=== PATIENT | female | born 1960 | race Caucasian/White ===

== ENCOUNTER → 2019-01-06 08:53 | Outpatient (CLI) | payer BC, SELFPAY ==
--- NOTE | 2019-01-06 08:56 | XR_ITS ---
XR DEXA axial skeleton HISTORY: ITS.REASON: OSTEOPENIA ORDERING PHYSICIAN: Ronnie Nuñez MD PATIENT AGE: 58 years COMPARISON: None FINDINGS: The BMD measured at the Total Right femoral neck is -.886 g/cm squared with a T score of -1.0. This is considered Normal according to the World Health Organization criteria. Fracture risk is Low. Treatment is advised. L1 L4 density has a T score of 4.8 indicating normal bone density IMPRESSION: Normal bone density with low fracture risk. Recommend follow-up exam December 2020
== END ==
PROVIDERS: PCP Family Medicine; Visit Provider Family Medicine
DX: Z13.820 Encounter for screening for osteoporosis (principal)
CPT/HCPCS: 77080

== ENCOUNTER → 2019-05-30 10:35 | Outpatient (CLI) | payer BC, SELFPAY ==
--- NOTE | 2019-05-30 10:41 | NVE_ITS ---
Venous Exam Indications: 729.5 Pain in limb. 782.3 Edema. IMPRESSIONS 1. There is no evidence of significant Reflux. 2. No evidence of deep or superficial vein thrombosis involving the left lower extremity Left lower extremity venous duplex evaluation. Doppler flow study including spectral analysis, color and gay scale imaging. Location: Vascular laboratory. Patient status: Outpatient. Tables: Venous flow and imaging: + +-------+ + + Location Overall Flow properties Comments + +-------+ + + Left common femoral Patent Normal phasicity; spontaneous; normal augmentation; compressible + +-------+ + + Left saphenofemoral Patent Compressible junction + +-------+ + + Left profunda femoral Patent Compressible + +-------+ + + Left femoral Patent Normal phasicity; Mid portion of this spontaneous; normal vessel not augmentation; visualized. compressible + +-------+ + + Left greater saphenous Patent Normal phasicity; spontaneous; normal augmentation; compressible + +-------+ + + Left popliteal Patent Normal phasicity; spontaneous; normal augmentation; compressible + +-------+ + + Left posterior tibial Patent Compressible Mid portion of this vessel not visualized. + +-------+ + + Left peroneal Patent Compressible Mid portion of this vessel not visualized. + +-------+ + + Left gastrocnemius Patent Compressible + +-------+ + + Left soleal Patent Compressible + +-------+ + + (Report amended ) Electronically signed by: Vini Patel [id number]
== END ==
PROVIDERS: PCP Family Medicine; Visit Provider Nurse Practitioner Family
DX: M79.605 Pain in left leg (principal)
CPT/HCPCS: 93971

== ENCOUNTER → 2019-07-12 11:12 | Outpatient (CLI) | payer BC, SELFPAY ==
--- NOTE | 2019-07-12 11:18 | XR_ITS ---
PROCEDURE: XR FOOT WT BEARING RT 3V CLINICAL INDICATION: pain Pain in the heel COMPARISON: No exams were available for comparison FINDINGS: No fracture or dislocation. No lytic or blastic change. There is normal mineralization. Mild osteoarthritic changes are present at the metatarsal tarsal junction and the 1st metatarsophalangeal joint. There is mild pes planus. Calcification is present along the plantar fascia Other findings:Enthesophytes of the Achilles tendon with small calcaneal spur. Soft tissue calcifications noted along the lower anterior leg IMPRESSION: Osteoarthritic change with pes planus. Calcification noted within the plantar fascia which may be seen with plantar fasciitis. Dictated by: Rupert Camacho MD 07/12/2019 12:42 Signed by: <Electronically signed by Rupert Camacho MD in [place]> 07/12/2019 12:42
--- NOTE | 2019-07-12 11:18 | XR_ITS ---
PROCEDURE: XR ANKLE WT BEARING RT MIN 3V CLINICAL INDICATION: pain COMPARISON: No exams were available for comparison FINDINGS: Mild hypertrophic changes are present at the medial and lateral malleolar region. There is an enthesophytes at the Achilles insertion. No fracture or dislocation IMPRESSION: . mild degenerative change. Nonspecific enthesophytes at the Achilles insertion Dictated by: Rupert Camacho MD 07/12/2019 13:20 Signed by: <Electronically signed by Rupert Camacho MD in [place]> 07/12/2019 13:20
== END ==
PROVIDERS: PCP Family Medicine; Visit Provider Podiatrist
DX: M79.671 Pain in right foot (principal)
CPT/HCPCS: 73610; 73630

== ENCOUNTER → 2019-07-18 15:55 | Outpatient (CLI) | payer BC, SELFPAY ==
[2019-07-18 17:12] LABS: Blood Urea Nitrogen 18 mg/dL (7-18); Creatinine,Serum 0.95 mg/dL (0.55-1.02); Estimated Glomerular Filt Rate 60 ml/min (>60); GFR (African American) 73 ML/MIN (>60)
== END ==
PROVIDERS: Visit Provider Podiatrist
DX: Z01.818 Encounter for other preprocedural examination (principal)
CPT/HCPCS: 36415; 82565; 84520

== ENCOUNTER → 2019-07-22 09:31 | Outpatient (CLI) | payer BC, SELFPAY ==
--- NOTE | 2019-07-22 09:33 | MR_ITS ---
PROCEDURE: MR ANKLE RT WO/W CON CLINICAL INDICATION: evaluate for edema, tendon tear, rupture Posterior ankle pain, tendon pain, rupture of the Achilles tendon, strain of right Achilles tendon, right Achilles bursitis, right foot pain COMPARISON: XR ANKLE WT BEARING RT MIN 3V from 07/12/2019 TECHNIQUE: Routine multiplanar multi echo sequences are performed without and with gadolinium enhancement. FINDINGS: There is mild generalized diffuse soft tissue edema greater along the medial aspect of the ankle. No bone marrow edema evident. The tibiofibular and talofibular ligaments appear intact as does the deltoid ligament. Spring ligament is identified and has an unremarkable appearance. The prone peroneal tendons, flexor digitorum longus, and flexor hallucis longus tendons and posterior tibialis tendons have an unremarkable appearance. There is thickening of the distal most aspect of the Achilles tendon with slight increased T2 signal with mild edema in the soft tissues adjacent to the tendon.. Edema is present in Kager's fat pad. Increased T2 signal involves the most distal aspect of the Achilles tendon fibers along the posterior margin. Small area of increased T2 signal involves the lateral aspect of the talar dome. IMPRESSION: 1. Thickening of the distal aspect of the Achilles tendon with edema of the tendon and mild edema of the soft tissues adjacent to the tendon consistent with Achilles tendinosis with possible partial tear distally at the insertion on the the calcaneus and mild edema of Kager's fat pad. A complete tear of the Achilles tendon is not present 2. Generalized subcutaneous edema of the ankle Dictated by: Rupert Camacho MD 07/24/2019 07:18 Electronically signed by Rupert Camacho MD in [place] 07/24/2019 07:18
== END ==
PROVIDERS: PCP Family Medicine; Visit Provider Podiatrist
DX: S86.011A Strain of right Achilles tendon, initial encounter (principal)
CPT/HCPCS: 73723

== ENCOUNTER → 2019-10-27 09:02 | Outpatient (CLI) | payer BC, SELFPAY ==
--- NOTE | 2019-10-27 09:07 | US_ITS ---
PROCEDURE: US THYROID CLINICAL INDICATION: GOITER COMPARISON: No exams were available for comparison FINDINGS: Right lobe: 3.2 x 0.9 x 1.1 cm. There is heterogeneous echogenicity of the right lobe but no discrete mass. Left lobe: 2.7 x 1.1 x 1.1 cm. Heterogeneous echogenicity but no discrete mass. Isthmus: Unremarkable Additional findings: IMPRESSION: Heterogeneous thyroid with no discrete mass. Dictated by: Rupert Camacho MD 10/27/2019 13:48 Electronically signed by Rupert Camacho MD in [place] 10/27/2019 13:48
== END ==
PROVIDERS: PCP Family Medicine; Visit Provider Family Medicine
DX: E04.9 Nontoxic goiter, unspecified (principal)
CPT/HCPCS: 76536

== ENCOUNTER → 2020-06-20 07:23 | Outpatient (CLI) | payer BC, SELFPAY ==
--- NOTE | 2020-06-20 07:35 | MM_ITS ---
PROCEDURE: MM DIG SCREENING MAMM BI W/CAD Digital Breast Tomosynthesis Included CLINICAL INDICATION: SCREENING there is a history of breast cancer patient's paternal aunt. There has been a previous biopsy right breast for benign disease. 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 R2 CAD reviewed. FINDINGS: The breasts are composed primarily of fat with minimal scattered fibroglandular densities throughout each breast. There is a stable nodular density near the axillary tail left breast likely a low-lying node unchanged in appearance from mammograms 10/24/2007. There is a stable tiny nodular density subareolar region left breast. There is no suspicious lesion and no suspicious microcalcifications. IMPRESSION: Fatty type breast parenchyma with no suspicious lesions seen BI-RAD Category: 2 Benign Finding(s) FOLLOW-UP: 1YR 1 Year Follow-up (A letter has been sent to the patient regarding results of the study.) Dictated Dr. Aiden Lees MD 06/22/2020 08:05 Dr. Aiden Reno MD in [place] 06/22/2020 08:05
--- NOTE | 2020-06-20 07:36 | US_ITS ---
PROCEDURE: US TRANSVAGINAL CLINICAL INDICATION: VAGINAL BLEEDING COMPARISON: US PTV US PELVIS-TRANSVAGINAL ONLY from 07/25/2016 FINDINGS: UTERUS: 8cm x 6cmx 4cm with a combined endometrial thickness of 22.5mm LEFT OVARY: 2pxm2lii4.2cm with a volume of 4.4ml. RIGHT OVARY: [id number] with a volume of 1ml. There is moderate to severe thickening of the endometrium measuring up to 2.3 cm in thickness with areas of decreased echogenicity on the left. IMPRESSION: Moderate to severe thickening of the endometrium with some cystic areas. Endometrial hyperplasia, endometrial carcinoma, or endometrial polyp is considered. LOCOMOTIVE LUBRICATING SYSTEMS CLERK consult suggested Dictated b Rupert Camacho MD 06/20/2020 16:04 Rupert Camacho MD in [place] 06/20/2020 16:04
== END ==
PROVIDERS: PCP Family Medicine; Visit Provider Physician Assistant
DX: N93.9 Abnormal uterine and vaginal bleeding, unspecified (principal)
CPT/HCPCS: 76830; 77063; 77067

== ENCOUNTER → 2020-06-23 10:02 | Outpatient (CLI) | payer BC, SELFPAY ==
[2020-06-23 13:00] LABS: Potassium 5.3 mmoL/L (3.5-5.1)
== END ==
PROVIDERS: Visit Provider Physician Assistant
DX: R25.2 Cramp and spasm (principal)
CPT/HCPCS: 36415; 84132

== ENCOUNTER → 2020-08-14 10:46 | Outpatient (CLI) | payer BC, SELFPAY ==
--- NOTE | 2020-08-14 10:59 | ECG_ITS ---
APPROVED REPORT Exam: Resting ECG HR:77 bpm ECG Measurements Heart Rate 77 AXES FL 182 P 49 QRSd 98 QRS -4 QT 390 T 18 QTc 441 Conclusion Normal sinus rhythm Normal ECG Electronically signed by : Davion Mosher, 08/17/2020 13:57:09
[2020-08-14 11:05] LABS: Basophils # 0.1 K/mm3 (0-0.2); Basophils % 0.6 % (0.1-2.0); Eosinophils # 0.1 K/mm3 (0.0-0.4); Eosinophils % 1.6 % (0.1-12.0); Hemoglobin 13.7 g/dL (12.2-16.2); Lymphocytes # 2.3 K/mm3 (0.7-4.5); Lymphocytes % 29.8 % (10-50); Mean Corpuscular HGB Conc 31.2 g/dL (31.8-35.4); Mean Corpuscular Hemoglobin 29.5 pg (27.0-31.2); Mean Corpuscular Volume 94.4 fl (81-99); Mean Platelet Volume 9.5 fl (7.4-10.4); Monocytes # 0.3 K/mm3 (0.1-1.0); Neutrophils % 63.9 % (37.0-80.0); Platelet Count 246 K/mm3 (142-424); Red Blood Count 4.66 M/mm3 (4.20-5.40); Red Cell Distribution Width 12.7 % (11.5-17.5); White Blood Count 7.8 K/mm3 (4.8-10.8)
[2020-08-14 11:32] LABS: Chloride 100 mmol/L (98-107); Potassium 4.4 mmoL/L (3.5-5.1); Sodium 139 mmol/L (136-145)
[2020-08-14 11:35] LABS: Anion Gap 13.4 mEq/L (5-15); Blood Urea Nitrogen 16 mg/dl (7-17); Calcium 9.4 mg/dl (8.4-10.2); Carbon Dioxide 30 mmol/L (22.0-30.0); Estimated Glomerular Filt Rate 64 ml/min (>60); GFR (African American) 77 ML/MIN (>60); Glucose 139 mg/dl (74-100)
[2020-08-14 11:49] LABS: Coronavirus 19 IgG Antibody Negative (Negative); Coronavirus 19 IgM Antibody Negative (Negative)
== END ==
PROVIDERS: Visit Provider Nurse Practitioner Obstetrics & Gynecology
DX: Z01.89 Encounter for other specified special examinations (principal); N85.00 Endometrial hyperplasia, unspecified; N95.0 Postmenopausal bleeding
CPT/HCPCS: 36415; 80048; 85025; 86328; 93005

== ENCOUNTER 2020-08-15 05:56 | Day surgery (SDC) | payer BC, SELFPAY ==
[2020-08-14 09:11] VITALS: BMI 54.1
[2020-08-15] VITALS (15 sets, daily range): BP systolic 111–164; BP diastolic 48–97; PULSE 71–89; RESP 12–18; TEMP 36.2–36.9; O2SAT 89–100
--- NOTE | 2020-08-15 06:45 | P.PN_ITS ---
[facility] Anesthesia Checklist - Structural Data Admitted From: Home Planned Operative Procedure/s: d/c hyst Consent for Planned Operative Procedure(s) Verified: Yes - Additional verifications Anesthesia Reactions: No Hx Blood Transfusions: No Blood Transfusion Reaction: No - Airway Assessment C-Spine Mobility Assessed: Yes TMJ Mobility Assessed: Yes Dentition: Good Dentition - Neurological Assessment Level of Consciousness: Awake, Alert, Appropriate - Anesthesia Plan Anesthesia Risk discussed: Yes Anesthesia Plan: Verified ASA Class: II Anesthesia Type: General [facility] History I have reviewed the patient's past medical history: Yes Medical History: Reports:: Hyperlipidemia, Hypertension Denies:: Cancer, Diabetes Mellitus Type 1, Diabetes Mellitus Type 2, Internal Pacemaker, MRSA, Seizures *Have you ever received a pneumonia vaccine?: No *Have you received a flu vaccine this season?: No Other Medical History: Reports: Arthritis. Denies: Blood Transfusion Reaction Anesthesia experience/problems:: none Laterality Cases: Left: Total Knee Replacement Other Surgeries: Yes: Cholecystectomy, Colonoscopy, Other. No: Pacemaker Amputation: No Fractures: No - *Social History Last grade of school completed: High school graduate Smoking Status: Never smoker Alcohol Intake: never Substance Use Type: denies use *Occupational Status:: employed Housing: house Household Members: spouse *Travel in the last 8 weeks: None Family Hx:: Cancer, Hyperlipidemia, Hypertension, Stroke
--- NOTE | 2020-08-15 08:04 | HMH.OPNOTE ---
Date of procedure: 08/15/20 Pre-op Diagnosis:: Postmenopausal bleeding, complex hyperplasia with atypia Post-op Diagnosis:: Postmenopausal bleeding, complex hyperplasia with atypia Procedure performed:: Hysteroscopy with MyoSure Surgeon:: Ollie Levine MD POLICE RESERVES COMMANDER:: Ferdinand Naqvi Anesthesia: LMA Estimated blood loss (mL): 50 Clinical Note:: She is a 60-year-old lady who complains of postmenopausal bleeding. An endometrial biopsy done in my office showed that she had at least complex hyperplasia with atypia. We wanted to rule out endometrial hyperplasia so we scheduled her for a hysteroscopy with MyoSure. Operative findings:: She had a very lush endometrium. It had a slightly polypoid appearance. Operative note:: She was taken the operating room where LMA anesthesia was found to be adequate. She was prepped and draped normal sterile fashion in the lithotomy position. Weighted speculum was placed in vagina and the anterior lip of the cervix was grasped with a tenaculum. The cervix was dilated to approximately 6 mm. We then inserted a 6 mm MyoSure hysteroscope. The findings were as previously dictated. Then using the MyoSure resection device we resected the entire endometrial cavity. There was copious tissue retrieved. This was sent to pathology. We then injected a total of 30 cc of 0.25% ropivacaine at the 3:00, 5:00, 7:00, 9:00 positions of the cervix. She tolerated procedure well and was taken to recovery room in excellent condition. All sponge and instrument counts were correct. The fluid ins and outs showed a deficit of 50 cc. Condition: stable Disposition: PACU Specimens:: Endometrial sampling Complications:: None
--- NOTE | 2020-08-15 08:10 | HMH.ANESI ---
[facility] Anesthesia Record Part I Intake, IV Amount: 1,000 Estimated blood loss (mL): 20 Urine output (mL): 250 Blood Pressure: 156/65 SaO2: 95 Pulse Rate: 81 Respiratory Rate: 12 Temperature: 97.6 F Patient is:: Awake, Stable Stable to PACU at:: 08:10
--- NOTE | 2020-08-15 09:00 | SUR.PHASEII ---
PT INSTRUCTED ON USE OF IS AND USING WELL. PLACED ON 2L/NC AND SAT WENT UP TO 98%.
--- NOTE | 2020-08-15 09:16 | SUR.PHASEII ---
MEDICATED PT WITH PERCOCET 1 TAB PER MD ORDER FOR C/O OF BURNING/CRAMPING RATED AT 4.
--- NOTE | 2020-08-15 10:12 | P.PN_ITS ---
[facility] Anesthesia Record Part II Discharge Time: 08:55 Destination: Surgical Day Care (OP Surgery) PACU nurse assessment reviewed?: Yes Patient Condition:: Good Anesthesia Complications:: None Swallowing reflex intact?: Yes Cyanosis?: No Blood Pressure: 132/81 Pulse Rate: 71 Temperature: 97.1 F Mental Status: Alert & Oriented Pain level:: 5 Nausea and/or vomitting:: None Intake, IV Amount: 0
== END 2020-08-15 09:36 | disposition home or self-care (01) ==
LOC: OR 05:57
PROVIDERS: PCP Family Medicine; Visit Provider Nurse Practitioner Obstetrics & Gynecology
PROC: (CPT 58563; principal; 2020-08-15 07:30)
DX: N85.01 Benign endometrial hyperplasia (principal); N95.0 Postmenopausal bleeding; I10 Essential (primary) hypertension; E78.5 Hyperlipidemia, unspecified; M19.90 Unspecified osteoarthritis, unspecified site; Z90.49 Acquired absence of other specified parts of digestive tract; Z96.652 Presence of left artificial knee joint; Z80.9 Family history of malignant neoplasm, unspecified; Z82.3 Family history of stroke; Z82.49 Family history of ischemic heart disease and other diseases of the circulatory system; Z83.438 Family history of other disorder of lipoprotein metabolism and other lipidemia; Z79.899 Other long term (current) drug therapy
CPT/HCPCS: 58563; 96374; J2405

== ENCOUNTER → 2020-09-22 10:57 | Outpatient (CLI) | payer BC, SELFPAY | PROVIDERS: Visit Provider Obstetrics & Gynecology Gynecology | DX: Z03.818 Encounter for observation for suspected exposure to other biological agents ruled out (principal) | CPT/HCPCS: U0003 ==

== ENCOUNTER → 2020-11-06 12:26 | Outpatient (CLI) | payer BC, SELFPAY ==
--- NOTE | 2020-11-06 12:33 | XR_ITS ---
PROCEDURE: XR HIP RT 2-3V W/PELVIS Referring Doctor: Alexis Fish Patient Age:60Y CLINICAL INDICATION: RIGHT HIP PAIN COMPARISON: CR PELAP PELVIS AP ONLY from 04/19/2014 CR HIP2R HIP-2 VIEWS-RT from 06/20/[address] ABD PELVIS W/ CONTRAST from 06/26/2014 FINDINGS: Right hip AP and frog-leg view with When compared to April 2014 events a pronounced progressive severe arthritic changes at right hip There is now vfse-[id number]-oski appearance with at the right hip joint superiorly with prominent sclerosis about this narrowed joint and fairly pronounced subchondral cystic changes particularly at the superior head of the right femur. Additional lipping/marginal osteophyte along outer rim of superior right acetabulum. Most likely a sequela progressive arthritic changes however would question the possibility of a underlying avascular necrosis of femoral head which has resulted/accelerated progressive arthritic changes No fracture or dislocation is evident. Deep femoral neck and trochanteric region appear intact on the right. The left hip demonstrates progressive narrowing of the hip joint space since 2013 with some early sclerosis superiorly. Left femoral head remains intact SI joints intact iliac bones intact the pubis intact stable upon arthritic changes lower L-spine IMPRESSION: . Severe arthritic changes have developed at the right hip now with marked joint space narrowing and prominent sclerosis about the joint as well as prominent subchondral cystic changes of at superior right femoral head. . Progressive narrowing of the left hip joint space since 2014 also note No acute fractures evident . Progressive degenerative changes lower L-spine also suggested. Dictated by: Vini Patel MD 11/06/2020 13:26 Vini Patel MD in [place] 11/06/2020 13:26
== END ==
PROVIDERS: PCP Family Medicine; Visit Provider Family Medicine
DX: M25.551 Pain in right hip (principal)
CPT/HCPCS: 73502

== ENCOUNTER → 2021-10-17 15:25 | Outpatient (CLI) | payer BC, SELFPAY ==
--- NOTE | 2021-10-17 15:27 | MM_ITS ---
PROCEDURE INFORMATION: Exam: MG Bilateral Screening 3D Mammography Exam date and time: 10/17/2021 3:27 PM Age: 61 years old Clinical indication: Encounter for screening mammogram for malignant neoplasm of breast TECHNIQUE: Imaging protocol: Bilateral screening tomosynthesis and 2D mammography including computer-aided detection (CAD) when performed. COMPARISON: 1. MG MM DIG SCREENING MAMM BI W/CAD 06/20/2020 8:04 AM 2. MG DMSB DIG MAMM-SCREEN SHIRLENE 07/25/2016 3:49 PM FINDINGS: MAMMOGRAPHY: Breast composition: Finding The breasts are almost entirely fatty. Mass: None. Architectural distortion: None. Calcifications: No suspicious calcifications. Asymmetric density: None. Skin thickening: None. Axillary adenopathy: None. IMPRESSION: No mammographic evidence of malignancy. Annual screening is recommended unless otherwise clinically indicated. ASSESSMENT: BI-RADS Category 1: Negative
== END ==
PROVIDERS: PCP Family Medicine; Visit Provider Family Medicine
DX: Z12.31 Encounter for screening mammogram for malignant neoplasm of breast (principal)
CPT/HCPCS: 77063; 77067

== ENCOUNTER → 2023-01-16 13:25 | Outpatient (CLI) | payer OTHER, SELFPAY ==
--- NOTE | 2023-01-16 13:28 | XR_ITS ---
FINAL REPORT CLINICAL HISTORY: hip pain, cane user, c/o numbness/tingling down leg COMPARISON: 11/06/2020 FINDINGS: RIGHT HIP Two views of the right hip demonstrate no acute fracture or dislocation. Severe degenerative change of the right hip with multiple subchondral cysts in the superior femoral head and superior acetabulum. There also moderate to severe degenerative changes in the left hip. The visualized bony structures are well aligned. No soft tissue abnormality is seen. IMPRESSION: Degenerative changes with no acute bony abnormality. Reviewed, Interpreted and Dictated by Chandana Ochoa III, MD Transcribed by Mirian Jerez Authenticated and [facility]
== END ==
LOC: RAD 13:26
PROVIDERS: PCP Family Medicine; Visit Provider Orthopaedic Surgery
DX: M25.551 Pain in right hip (principal)
CPT/HCPCS: 73502

== ENCOUNTER → 2023-02-09 13:39 | Outpatient (CLI) | payer OTHER, SELFPAY ==
--- NOTE | 2023-02-09 13:52 | ECG_ITS ---
APPROVED REPORT Exam: Resting ECG HR:72 bpm ECG Measurements Heart Rate 72 AXES RI 190 P 50 QRSd 109 QRS -8 QT 374 T 28 QTc 398 Conclusion SINUS RHYTHM MODERATE INTRAVENTRICULAR CONDUCTION DELAY [105+ ms QRS DURATION, 80+ ms Q/S IN V1/V2, NO Q AND 60+ ms R IN I/aVL/V5/V6] ABNORMAL ECG UNCONFIRMED REPORT Electronically signed by : Davion Mosher MD 02/09/2023 19:44:48
--- NOTE | 2023-02-09 13:57 | XR_ITS ---
FINAL REPORT CLINICAL HISTORY: PREOP..high blood pressure FINDINGS: Two views of the chest were obtained. Cardiomegaly is noted. There has been prior median sternotomy. No acute pulmonary abnormality is identified. There is no pneumothorax. The bony thorax is intact. IMPRESSION: No acute cardiopulmonary process. Reviewed, Interpreted and Dictated by Calderon Cage MD Transcribed by Vu Birmingham Authenticated and [facility]
== END ==
PROVIDERS: PCP Family Medicine; Visit Provider Nurse Practitioner Family
DX: Z01.818 Encounter for other preprocedural examination (principal)
CPT/HCPCS: 71046; 93005

== ENCOUNTER → 2023-04-03 14:15 | Outpatient (CLI) | payer OTHER, SELFPAY ==
--- NOTE | 2023-04-03 | CA_ITS ---
FINAL REPORT TECHNIQUE: Color Doppler, duplex Doppler and gay scale sonography of the bilateral neck arterial vasculature was performed. Velocities were measured in the carotid arteries. Stenosis evaluation based on the validated velocity criteria. CLINICAL HISTORY: bRUIT FINDINGS: The peak systolic velocity of the right common carotid artery is 127 cm/s. The peak systolic velocity of the right internal carotid artery is 107 cm/s and end diastolic velocity 23 cm/s. The ICA/CCA ratio is 1.1. No plaque is present. The right external carotid artery is patent. The right vertebral artery is patent with antegrade flow. The peak systolic velocity of the left common carotid artery is 105 cm/s. The peak systolic velocity of the left internal carotid artery is 114 cm/s and end diastolic velocity 37 cm/s. The ICA/CCA ratio is 1.1. No plaque is present. The left external carotid artery is patent. The left vertebral artery is patent with antegrade flow. IMPRESSION: No evidence of stenosis. Bilateral patent vertebral arteries with antegrade flow. Reviewed, Interpreted and Dictated by Chandana Ochoa III, MD Transcribed by Danyell Pope Authenticated and [facility]
== END ==
PROVIDERS: PCP Family Medicine; Visit Provider Family Medicine
DX: R01.1 Cardiac murmur, unspecified (principal); I65.23 Occlusion and stenosis of bilateral carotid arteries
CPT/HCPCS: 93306; 93880

== ENCOUNTER 2023-04-15 11:00 | Outpatient (RCR) | payer OTHER, SELFPAY | END 2023-04-15 11:05 | disposition home or self-care (01) | LOC: PT 11:00 | PROVIDERS: PCP Family Medicine; Visit Provider Orthopaedic Surgery Adult Reconstructive Orthopaedic Surgery | DX: M16.11 Unilateral primary osteoarthritis, right hip (principal); Z96.641 Presence of right artificial hip joint | CPT/HCPCS: 97110; 97112; 97116; 97163; 97164; 97530 ==

== ENCOUNTER 2024-01-27 11:25 | Outpatient (CLI) | payer OTHER, SELFPAY ==
[2024-01-27 12:07] LABS: Basophils # 0.1 K/mm3 (0-0.2); Basophils % 0.6 % (0.1-2.0); Eosinophils # 0.1 K/mm3 (0.0-0.4); Eosinophils % 0.8 % (0.1-12.0); Hematocrit 43.7 % (37.0-47.0); Hemoglobin 13.7 g/dL (12.2-16.2); Lymphocytes # 2.2 K/mm3 (0.7-4.5); Lymphocytes % 22.8 % (10-50); Mean Corpuscular HGB Conc 31.3 g/dL (31.8-35.4); Mean Corpuscular Hemoglobin 29.3 pg (27.0-31.2); Mean Corpuscular Volume 93.8 fl (81-99); Mean Platelet Volume 8.5 fl (7.4-10.4); Monocytes # 0.4 K/mm3 (0.1-1.0); Monocytes % 4.6 % (1.7-9.3); Neutrophils # 6.8 K/mm3 (1.8-7.8); Neutrophils % 71.4 % (37.0-80.0); Platelet Count 326 K/mm3 (142-424); Red Blood Count 4.66 M/mm3 (4.20-5.40); Red Cell Distribution Width 14.3 % (11.5-17.5); White Blood Count 9.5 K/mm3 (4.8-10.8)
[2024-01-27 12:47] LABS: Chloride 106 mmol/L (98-107); Sodium 139 mmol/L (136-145)
[2024-01-27 12:48] LABS: Potassium 4.5 mmoL/L (3.5-5.1)
[2024-01-27 12:50] LABS: Alanine Aminotransferase 19 U/L (12-78); Alkaline Phosphatase 132 U/L (38-126); Anion Gap 12.5 mEq/L (5-15); Aspartate Amino Transferase 25 U/L (14-36); Bilirubin,Total 0.4 mg/dl (0.2-1.3); Blood Urea Nitrogen 24 mg/dl (7-17); Carbon Dioxide 25 mmol/L (22.0-30.0); Cholesterol 224 mg/dl (140-200); Estimated Glomerular Filt Rate 56 ml/min (>60); GFR (African American) 68 ML/MIN (>60); Triglycerides 150 mg/dl (30-150); VLDL Cholesterol 30 mg/dL (0-40)
[2024-01-27 12:51] LABS: Albumin Level 4.1 g/dl (3.5-5.0); Albumin/Globulin Ratio 1.2 (1.1-1.8); Calcium 9.5 mg/dl (8.4-10.2); Chol/HDL Ratio 5.6 (1-3.5); Globulin 3.3 g/dL (1.3-3.2); Glucose 118 mg/dl (74-100); HDL Cholesterol 40 mg/dl (40-60); Total Protein,Serum 7.4 g/dl (6.3-8.2)
[2024-01-27 13:20] LABS: Thyroid Stimulating Hormone < 0.02 uIU/mL (0.465-4.68)
[2024-01-27 13:23] LABS: Direct LDL Cholesterol 119.06 mg/dL (100-129)
[2024-01-27 13:32] LABS: 25-OH Vitamin D, Total 17.2 ng/mL (30-100)
[2024-01-27 14:46] LABS: Hemoglobin A1C 6.1 % (4.0-6.0)
== END 2024-01-27 23:59 ==
LOC: LAB 11:26
PROVIDERS: PCP Nurse Practitioner Family; Visit Provider Nurse Practitioner Family
DX: E03.9 Hypothyroidism, unspecified (principal); E55.9 Vitamin D deficiency, unspecified; E66.01 Morbid (severe) obesity due to excess calories; I10 Essential (primary) hypertension; M12.9 Arthropathy, unspecified; Z68.42 Body mass index [BMI] 45.0-49.9, adult; Z85.42 Personal history of malignant neoplasm of other parts of uterus
CPT/HCPCS: 36415; 80053; 80061; 82306; 83036; 84443; 85025

== ENCOUNTER 2024-03-16 08:42 | Outpatient (CLI) | payer OTHER, SELFPAY ==
--- NOTE | 2024-03-16 08:47 | MM_ITS ---
PROCEDURE INFORMATION: Exam: MG Bilateral Screening 3D Mammography Exam date and time: 03/16/2024 8:37 AM Age: 63 years old Clinical indication: Screening mammogram TECHNIQUE: Imaging protocol: Bilateral Screening tomosynthesis and 2D mammography including computer-aided detection (CAD) when performed. COMPARISON: 1. MG MM DIG SCREENING MAMM BI W/CAD 10/17/2021 3:47 PM 2. MG MM DIG SCREENING MAMM BI W/CAD 06/20/2020 8:04 AM 3. MG DMSB DIG MAMM-SCREEN SHIRLENE 07/25/2016 3:49 PM 4. MG DIGMAMMDX MAMMOGRAM DX-LOWERATOR OPERATOR N/C 05/09/2008 4:07 PM FINDINGS: MAMMOGRAPHY: Breast composition: There are scattered areas of fibroglandular density. Mass: None. Architectural distortion: No new or suspicious architectural distortion. Calcifications: No new or suspicious calcifications are present Asymmetric density: No new or suspicious asymmetric density is present Skin thickening: None. Axillary adenopathy: None. IMPRESSION: No mammographic evidence of malignancy. Recommend annual screening mammography unless otherwise clinically indicated. ASSESSMENT: BI-RADS category 1: Negative.
--- NOTE | 2024-03-16 08:48 | XR_ITS ---
FINAL REPORT TECHNIQUE: Bone densitometry calculations of the lumbar spine and left hip were obtained. CLINICAL HISTORY: POST MENOPAUSAL FINDINGS: Using L1-4, the bone mineral density of the spine is 1.551 g/cm2, corresponding to T-score of 4.6 but this is likely falsely elevated secondary to hypertrophic changes. Using the left hip, the bone mineral density of the femoral neck is 0.858 g/cm2, corresponding to a T-score of -0.7. Using the 1/3 radius, the bone mineral density of the radius is 0.524 g/cm2, corresponding to a T-score of -2.8 4. NOTE: T-score: Standard deviation compared with peak bone mass of young adult mean. *Following the recommendations of the International Society of Bone Densitometry, classification of hip BMD is based on the lower of two T-scores; total hip or femoral neck. IMPRESSION: Osteoporosis: Lowest T-score is at or below -2.5. This patient's T-score meets the World Health Organization criteria for osteoporosis. FRAX was not reported because some of the T-scores are at or above -1.0 Reviewed, Interpreted and Dictated by Chandana Ochoa III, MD Transcribed by Danyell Pope Authenticated and [facility]
== END 2024-03-16 23:59 | disposition home or self-care (01) ==
LOC: RAD 08:42
PROVIDERS: PCP Nurse Practitioner Family; Visit Provider Nurse Practitioner Family
DX: Z12.31 Encounter for screening mammogram for malignant neoplasm of breast (principal); Z78.0 Asymptomatic menopausal state
CPT/HCPCS: 77063; 77067; 77080

== ENCOUNTER 2024-07-15 06:29 | Outpatient (CLI) | payer OTHER, SELFPAY ==
--- NOTE | 2024-07-15 06:51 | CT_ITS ---
FINAL REPORT TECHNIQUE: Axial images through the abdomen and pelvis were performed without intravenous contrast. Oral contrast was administered. This study was performed with techniques to keep radiation doses as low as reasonably achievable, (ALARA). Individualized dose reduction techniques using automated exposure control or adjustment of mA and/or kV according to the patient's size were employed. CLINICAL HISTORY: ABD WALL DEFECT pt drank oral contrast FINDINGS: ABDOMEN: The lung bases are clear. The heart size is normal. Limited images of the liver are unremarkable. Patient is status post cholecystectomy. The spleen is normal. No adrenal mass is identified. The aorta is normal in caliber. There is no significant free fluid or adenopathy. There is no nephrolithiasis. There is no hydronephrosis. PELVIS: The appendix is Normal. Patient is status post hysterectomy. There is a small umbilical hernia containing fat. No other abdominal wall defect is identified. The urinary bladder is unremarkable. There is no significant free fluid or adenopathy. There are postoperative changes of right hip arthroplasty. IMPRESSION: Small umbilical hernia containing fat. No other abdominal wall defects identified. Reviewed, Interpreted and Dictated by Chandana Ochoa III, MD Transcribed by Berta Smith Authenticated and [facility]
== END 2024-07-15 23:59 | disposition home or self-care (01) ==
PROVIDERS: PCP Nurse Practitioner Family; Visit Provider Nurse Practitioner Family
DX: M95.8 Other specified acquired deformities of musculoskeletal system (principal)
CPT/HCPCS: 74176

== ENCOUNTER 2025-02-16 10:48 | Outpatient (CLI) | payer OTHER, SELFPAY ==
--- NOTE | 2025-02-16 10:53 | XR_ITS ---
FINAL REPORT CLINICAL HISTORY: PAIN FINDINGS: Right knee Three views were obtained. There is no fracture or dislocation. There is moderate to severe tricompartment degenerative change. There is a possible joint body posteriorly. No significant joint effusion is identified. IMPRESSION: Advanced degenerative changes with possible joint body. Reviewed, Interpreted and Dictated by Ronnie Rosenberg MD Transcribed by Danyell Pope Authenticated and [facility]
[2025-02-16 11:25] LABS: Basophils # 0.1 K/mm3 (0-0.2); Basophils % 0.7 % (0.1-2.0); Eosinophils # 0.1 K/mm3 (0.0-0.4); Eosinophils % 1.4 % (0.1-12.0); Hematocrit 39.4 % (37.0-47.0); Lymphocytes # 1.8 K/mm3 (0.7-4.5); Lymphocytes % 25.1 % (10-50); Mean Corpuscular Volume 90.8 fl (81-99); Mean Platelet Volume 11.8 fl (7.4-10.4); Monocytes # 0.5 K/mm3 (0.1-1.0); Monocytes % 6.7 % (1.7-9.3); Neutrophils # 4.6 K/mm3 (1.8-7.8); Neutrophils % 65.8 % (37.0-80.0); Nucleated Red Blood Cells # 0 10^3/uL; Nucleated Red Blood Cells % 0 %; Platelet Count 243 K/mm3 (142-424); Red Blood Count 4.34 M/mm3 (4.20-5.40); Red Cell Distribution Width 12.5 % (11.5-17.5); Red Cell Distribution Width-SD 42.1 fL; White Blood Count 7.1 K/mm3 (4.8-10.8)
[2025-02-16 11:47] LABS: Alanine Aminotransferase 17 U/L (12-78); Albumin Level 3.9 g/dl (3.5-5.0); Alkaline Phosphatase 96 U/L (38-126); Anion Gap 16.6 mEq/L (5-15); Aspartate Amino Transferase 22 U/L (14-36); Bilirubin,Total 0.6 mg/dl (0.2-1.3); Blood Urea Nitrogen 25 mg/dl (7-17); Carbon Dioxide 23 mmol/L (22.0-30.0); Chloride 106 mmol/L (98-107); Chol/HDL Ratio 4.2 (1-3.5); Cholesterol 208 mg/dl (140-200); Estimated Glomerular Filt Rate 56 ml/min (>60); GFR (African American) 68 ML/MIN (>60); Globulin 3.8 g/dL (1.3-3.2); Glucose 119 mg/dl (74-100); HDL Cholesterol 49 mg/dl (40-60); Potassium 4.6 mmoL/L (3.5-5.1); Sodium 141 mmol/L (136-145); Total Protein,Serum 7.7 g/dl (6.3-8.2); Triglycerides 134 mg/dl (30-150); VLDL Cholesterol 27 mg/dL (0-40)
[2025-02-16 11:58] LABS: Direct LDL Cholesterol 114.32 mg/dL (100-129)
[2025-02-16 12:01] LABS: 25-OH Vitamin D, Total 20.1 ng/mL (30-100)
[2025-02-16 12:17] LABS: Thyroid Stimulating Hormone < 0.02 uIU/mL (0.465-4.68)
[2025-02-16 12:36] LABS: Vitamin B12 416 pg/mL (239-931)
[2025-02-16 13:51] LABS: Hemoglobin A1C 5.7 % (4.0-6.0)
== END 2025-02-16 23:59 | disposition home or self-care (01) ==
LOC: LAB 10:49
PROVIDERS: PCP Nurse Practitioner Family; Visit Provider Nurse Practitioner Family
DX: M25.561 Pain in right knee (principal); R73.03 Prediabetes; I10 Essential (primary) hypertension; M12.9 Arthropathy, unspecified; E03.9 Hypothyroidism, unspecified; E55.9 Vitamin D deficiency, unspecified; R20.2 Paresthesia of skin
CPT/HCPCS: 36415; 73562; 80053; 80061; 82306; 82607; 83036; 84443; 85025

== ENCOUNTER → 2025-03-17 10:05 | Outpatient (CLI) | payer OTHER, SELFPAY | LOC: SL 10:06 | PROVIDERS: PCP Nurse Practitioner Family; Visit Provider Nurse Practitioner Family | DX: G47.33 Obstructive sleep apnea (adult) (pediatric) (principal); R06.83 Snoring; E66.9 Obesity, unspecified; Z68.41 Body mass index [BMI] 40.0-44.9, adult | CPT/HCPCS: G0399 ==

== ENCOUNTER 2025-04-18 06:22 | Day surgery (SDC) | payer OTHER, SELFPAY ==
[2025-04-17 14:29] VITALS: BMI 50.8
[2025-04-18] MEDS: PHENYLEPHRINE 2.5% OPHTH SOLN 2ML OP ×3 (07:50→08:00)
[2025-04-18] MEDS: CYCLOPENTOLATE 2% OPHTH SOLN 2ML BOTTLE OP ×3 (07:50→08:00)
[2025-04-18] MEDS: TETRACAINE 0.5% OPTH SOL 15ML OP ×3 (07:50→08:00)
[2025-04-18 07:57] VITALS: BP 155/77; PULSE 75; RESP 17; TEMP 36.4; O2SAT 97
[2025-04-18 09:12] VITALS: BP 125/70; PULSE 71; RESP 16; TEMP 36.6; O2SAT 97
[2025-04-18] MEDS: MIDAZOLAM 2MG/2ML VIAL 1 MG IV (09:12)
[2025-04-18] MEDS: SODIUM CHLORIDE 0.9% 10ML FLUSH SYRINGE 10 ML IV (09:12)
[2025-04-18 09:17] VITALS: BP 126/67; PULSE 71; RESP 16; TEMP 36.6; O2SAT 96
[2025-04-18] MEDS: TIMOLOL 0.5% OPTH SOLN 5ML OP (09:21)
[2025-04-18] MEDS: TOBRAMYCIN/DEX OPTH SUSP 2.5ML OP (09:21)
[2025-04-18] MEDS: LIDOCAINE 1% PF 2ML AMPULE 2 ML IJ (09:21)
[2025-04-18 09:22] VITALS: BP 122/66; PULSE 68; RESP 16; TEMP 36.6; O2SAT 96
[2025-04-18 09:27] VITALS: BP 117/69; PULSE 68; RESP 16; TEMP 36.6; O2SAT 97
[2025-04-18 09:32] VITALS: BP 147/83; PULSE 67; RESP 17; TEMP 36.6; O2SAT 98
--- NOTE | 2025-04-18 10:51 | HMH.PROCNOTE ---
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 The patient reports that this interferes with ADLs such as reading, watching TV and/or driving or the vision is like looking through a foggy haze and is very troubling. The patient was examined and found to have a visually significant cataract with best corrected vision of [20/CF5ft] by refraction and/or glare testing. Treatment options, risks and benefits were explained and the patient elected to have cataract surgery in an attempt to improve their vision. The patient had the eye anesthetized with topical tetracaine, the eye ways prepped and draped in the usual fashion for cataract surgery. A paracentesis and a temporal keratotomy were made. 0.2cc of 1% lidocaine PF was placed into the anterior chamber. And aqueous/viscoelastic exchange was done and a 360 degree capsulorexis was performed. Through hydrodissection and delineation with BSS on a cannula was done. The lens nucleus was phecoemulsified with CDE of [11.35]. Residual cortical material was removed using automated I&A The capsular bag was deepened with viscoelastica and a PCIOL was placed in the capsular bag with good centration and stability. Residual viscoelastic was removed using automated I&A. The keratotomy incision was hydrated with BSS on a cannula. The wound were checked and found to be water tight. IOP was checked digitally and adjusted as needed so as not to be too high. 1 drop of timolol 0.5%, ofloxacin, prednisolone acetate and ketorolac was instilled and eye shield taped over the eye. The patient was taken to recovery in good condition and will be seen postoperatively.
== END 2025-04-18 09:38 | disposition home or self-care (01) ==
PROVIDERS: PCP Nurse Practitioner Family; Visit Provider Ophthalmology
PROC: (CPT 66984; principal; 2025-04-18 09:00)
DX: H25.812 Combined forms of age-related cataract, left eye (principal); E78.00 Pure hypercholesterolemia, unspecified; I10 Essential (primary) hypertension; G47.30 Sleep apnea, unspecified; E03.9 Hypothyroidism, unspecified; M19.90 Unspecified osteoarthritis, unspecified site; Z97.3 Presence of spectacles and contact lenses; Z79.82 Long term (current) use of aspirin; Z79.83 Long term (current) use of bisphosphonates; Z79.1 Long term (current) use of non-steroidal anti-inflammatories (NSAID); Z79.899 Other long term (current) drug therapy; Z79.890 Hormone replacement therapy; Z79.84 Long term (current) use of oral hypoglycemic drugs; Z88.0 Allergy status to penicillin
CPT/HCPCS: 66984; J2250; V2632

== ENCOUNTER 2025-04-27 10:22 | Outpatient (CLI) | payer OTHER, SELFPAY ==
--- OUTSIDE RECORDS SUMMARY | 2025-04-27 10:33 | XMS_ITS | Clinical Summary ---
Author Organization [facility] Address [address] [place] [address] Care Team Providers Care Business Intelligence Architect Name Role Phone Luis Nuñez MD Primary Care Provider [phone] Ollie Levine MD Unavailable [phone] Allergies Active Allergy Reactions Criticality Noted Date Comments Penicillin G Hives Medium 04/21/2007 Medications oxyCODONE (Roxicodone) 2.5 MG immediate release split tablet Take 5 mg by mouth every 6 (six) hours. 09/27/20 20 Active acetaminophen (GoodSense Pain Relief) 325 MG tablet Take 325 mg by mouth every 6 (six) hours. 09/27/20 20 Active enoxaparin (Lovenox) 30 MG/0.3ML solution Take 30 mg by mouth 2 (two) times a day. 1 tab(s) orally 2 times a day PRN constipation 09/27/20 20 Active furosemide (Lasix) 20 MG tablet Take 20 mg by mouth 1 (one) time each day. Active ibuprofen 600 MG tablet Take 600 mg by mouth every 6 (six) hours. Every 6 hours PRN pain 09/27/20 20 Active levothyroxine (Synthroid, Levoxyl) 175 MCG tablet Take 175 mcg by mouth 1 (one) time each day. Active losartan (Cozaar) 50 MG tablet Take 50 mg by mouth 2 (two) times a day. Active triamterene-hydroc hlorothiazide (Maxzide-25) 37.5-25 MG tablet Take 37.2 tablets by mouth 1 (one) time each day. Active metoprolol succinate XL (Toprol-XL) 50 MG 24 hr tablet Take 50 mg by mouth 1 (one) time each day. Active ondansetron ODT (Zofran-ODT) 4 MG disintegrating tablet Take 4 mg by mouth every 6 (six) hours if needed. As needed, nausea/vomiting 09/27/20 Active senna-docusate (Hermila-Colace) 8.6-50 MG tablet Take 8.6 tablets by mouth 2 (two) times a day if needed. 09/27/20 20 Active atorvastatin (Lipitor) 40 MG tablet 06/24/20 Active celecoxib (CeleBREX) 200 MG capsule 10/28/20 21 Active valsartan-hydroCHL OROthiazide (Diovan-HCT) 320-25 MG tablet 08/20/20 21 Active aspirin 81 MG EC tablet Take 81 mg by mouth 1 (one) time each day. Active Active Problems Problem Noted Date Diagnosed Date Endometrial carcinoma 09/26/2020 Cancer Staging:Clinical stage from 09/26/2020:FIGO Stage IA- Unsigned Overview (03/24/2021): Malignant neoplasm of endometrium Family History Medical History Relation Name Comments Conversions - Other Mother cancer o f vulva Relation Name Status Comments Father Mother Social History Tobacco Use Types Packs/Day Years Used Date Smoking Tobacco: Never Smokeless Tobacco: Never Comments No Sex and Gender Information Value Date Recorded Sex Assigned at Not on file Legal Sex Female 7:46 PM EDT Gender Identity Not on file Sexual Orientation Not on file Last Filed Vital Signs Vital Sign Reading Time Taken Comments Blood Pressure 151/74 04/07/2023 12:00 PM EDT Pulse 73 04/07/2023 12:00 PM EDT Temperature - - Respiratory Rate - - Oxygen Saturation - - Inhaled Oxygen Concentration - - Weight 134 kg (296 lb) 04/07/2023 12:00 PM EDT Height 165.1 cm (5' 5 ) 04/07/2023 12:00 PM EDT Body Mass Index 49.26 04/07/2023 12:00 PM EDT Plan of Treatment Health Maintenance Due Date Last Done Comments [facility]-Depression Screening 1960 [facility]-HIV Screening 1960 [facility]-Hepatitis C Screening 1960 [facility]-/Child/Adol SDOH Screenings 1960 [facility]-Obesity Intervention 1966 [facility]- SDOH Screenings 1978 [facility]-Adult SDOH Screenings 1978 CT Colonography 2005 Colonoscopy 2005 FIT-DNA 2005 FIT 2005 FOBT 2005 Sigmoidoscopy 2005 [facility]-Colorectal Cancer Screening 2005 [facility]-Breast Cancer Screening 2010 [facility]-Zoster Vaccines (2 of 2) 10/25/2018 08/30/2018 [facility]-Pneumococcal Vaccine: 50 + Years (2 of 2 - PCV) 02/11/2019 02/11/2018 [facility]-RSV Vaccine: 60+ Years o r (1 - Risk 60-74 years 1-dose series) 2020 [id number] Vaccine (4 - 2023- season) 2024 08/29/2021, 02/27/2021, 01/30/2021 [facility]-Influenza Vaccine (Seaso n Ended) 2025 [facility]-DTaP,Tdap,and Td Vaccine s (2 - Td or Tdap) 02/12/2028 02/11/2018 [facility]-Hepatitis A Vaccines Aged Out 11/25/2018 No longer eligible based on patient's age to complete this topic [facility]-Diabetes: Hemoglobin A1C Discontinued 08/31/2020 HPV Vaccines Aged Out No longer eligi ble based on patient's age to complete this topic [facility]-HIB Vaccines Aged Out No longer e ligible based on patient's age to complete this topic [facility]-IPV Vaccines Aged Out No longer e ligible based on patient's age to complete this topic [facility]-Rotavirus Vaccines Aged Out No lo nger eligible based on patient's age to complete this topic Procedures Procedure Name Priority Date/Time Associated Diagnosis Comments HEMOGLOBIN A1C Routine 08/31/2020 3:20 PM EDT from Last 3 Months or Most Recently Relevant to Health Maintenance Results * (ABNORMAL) Hemoglobin A1c (08/31/2020 3:20 PM EDT) Hemoglobin A1c 6.2(H) 4.7 - 6.0 % [facility] Comment: Glycohemoglobin Reference Range, 0 years and up: 4.7 to 6.0% . HA1C Interpretive Data: Diagnosis of Diabetes: Diabetic > or = 6.5% Pre-diabetic 5.7 to 6.4% Non-diabetic < or = 5.6% . Glycemic Targets for Type I and Type II Diabetics: Non- Adults <7.0% Adults <6.0% Children and Adolescents <7.5% . Source: [place] [employer]. Standards of medical care in diabetes, 2017. Diabetes Care.2017:40 (suppl 1):S1-S135. . HbA1c assay performed by an ion-exchange chromatography method that is certified traceable to the DCCT. 08/31/2020 3:20 PM EDT 08/31/2020 3:28 PM EDT us Ana Kaplan MD LAB BLOOD ORDERABLES Final Re sult [facility] from Last 3 Months or Most Recently Relevant to Health Maintenance Care Teams Business Intelligence Architect Relationship Specialty Start Date End Date Luis Nuñez MD [address] [place] [address] PCP - General 03/22/21 Ollie Levine MD [address] [place] [phone] Referring Physician 10/28/21
--- OUTSIDE RECORDS SUMMARY | 2025-04-27 10:33 | XMS_ITS | Encounter Summary ---
Author Organization [facility] Address [address] [place] [address] Care Team Providers Care Spearer Name Role Phone Luis Nuñez MD Primary Care Provider [phone] Ollie Levine MD Unavailable [phone] Encounter Details Date Type Department Care Team (Late st Contact Info) Description 01/27/2024 [facility] [address] [place] [address] Kemi Galilea Car, SEWER DIGGER [address] [id number] Endometrial carcinoma (CMS/HCC) (Primary Dx) Social History Tobacco Use Types Packs/Day Years Used Date Smoking Tobacco: Never Smokeless Tobacco: Never Comments No Sex and Gender Information Value Date Recorded Sex Assigned at Not on file Legal Sex Female 7:46 PM EDT Gender Identity Not on file Sexual Orientation Not on file documented as of this encounter Plan of Treatment Not on file documented as of this encounter Visit Diagnoses Diagnosis Endometrial carcinoma- Primary documented in this encounter Additional Health Concerns Assessment Noted Time A fall risk assessment has been complete d for the patient 05/08/2022 9:58 AM EDT documented as of this encounter Care Teams Spearer Relationship Specialty Start Date End Date Luis Nuñez MD [address] [facility] [address] [facility] [place] [address] PCP - General 03/22/21 Ollie Levine MD [address] [facility] [address] [place] [address] Referring Physician 10/28/21 documented as of this encounter
[2025-04-27 11:50] LABS: Free T4 (Free Thyroxine) 1.04 ng/dl (0.78-2.19)
[2025-04-27 12:02] LABS: Thyroid Stimulating Hormone 3.24 uIU/mL (0.465-4.68)
== END 2025-04-27 23:59 | disposition home or self-care (01) ==
LOC: LAB 10:24
PROVIDERS: PCP Nurse Practitioner Family; Visit Provider Nurse Practitioner Family
DX: E03.9 Hypothyroidism, unspecified (principal)
CPT/HCPCS: 36415; 84439; 84443

== ENCOUNTER 2025-05-02 07:08 | Day surgery (SDC) | payer OTHER, SELFPAY ==
[2025-04-28 13:37] VITALS: BMI 50.8
[2025-05-02] MEDS: TETRACAINE 0.5% OPTH SOL 15ML OP ×4 (08:42→08:53)
[2025-05-02] MEDS: CYCLOPENTOLATE 2% OPHTH SOLN 2ML BOTTLE OP ×3 (08:43→08:53)
[2025-05-02] MEDS: PHENYLEPHRINE 2.5% OPHTH SOLN 2ML OP ×3 (08:43→08:53)
[2025-05-02 08:48] VITALS: BP 153/73; PULSE 74; RESP 18; TEMP 36.5; O2SAT 98
[2025-05-02 09:20] VITALS: BP 136/80; PULSE 75; RESP 16; O2SAT 100
[2025-05-02] MEDS: MIDAZOLAM 2MG/2ML VIAL 1 MG IV (09:20)
[2025-05-02] MEDS: LIDOCAINE 1% PF 2ML AMPULE 2 ML IJ (09:22)
[2025-05-02] MEDS: TIMOLOL 0.5% OPTH SOLN 5ML OP (09:22)
[2025-05-02] MEDS: TOBRAMYCIN/DEX OPTH SUSP 2.5ML OP (09:22)
[2025-05-02] MEDS: SODIUM CHLORIDE 0.9% 10ML FLUSH SYRINGE 10 ML IV (09:23)
[2025-05-02 09:25] VITALS: BP 141/68; PULSE 78; RESP 16; O2SAT 100
[2025-05-02 09:30] VITALS: BP 147/70; PULSE 79; RESP 16; O2SAT 100
[2025-05-02 09:33] VITALS: BP 142/81; PULSE 75; RESP 16; O2SAT 100
[2025-05-02 09:35] VITALS: BP 143/82; PULSE 77; RESP 16; O2SAT 98
--- NOTE | 2025-05-02 10:56 | P.PCN_ITS ---
[facility] Procedure Note Date: 05/02/25 Time: 10:56 Procedure Note:: Preoperative Diagnosis: Cataract combined NS Cortical Complex [Right] Eye Postop diagnosis: same Operation: Microscopic phacoemulsification with intraocular lens implant [Right] Eye Specimen: None Blood Loss: None The patient was examined in the office with a complaint of poor vision in the [right] eye. The patient reports that this interferes with ADLs such as reading, watching TV and/or driving or the vision is like looking through a foggy haze and is very troubling. The patient was examined and found to have a visually significant cataract with best corrected vision of [20/400] by refraction and/or glare testing. Treatment options, risks and benefits were explained and the patient elected to have cataract surgery in an attempt to improve their vision. The patient had the eye anesthetized with topical tetracaine, the eye ways prepped and draped in the usual fashion for cataract surgery. A paracentesis and a temporal keratotomy were made. 0.2cc of 1% lidocaine PF was placed into the anterior chamber. And aqueous/viscoelastic exchange was done and a 360 degree capsulorexis was performed. Through hydrodissection and delineation with BSS on a cannula was done. The lens nucleus was phecoemulsified with CDE of [5.50]. Residual cortical material was removed using automated I&A The capsular bag was deepened with viscoelastica and a PCIOL was placed in the capsular bag with good centration and stability. Residual viscoelastic was removed using automated I&A. The keratotomy incision was hydrated with BSS on a cannula. The wound were checked and found to be water tight. IOP was checked digitally and adjusted as needed so as not to be too high. 1 drop of timolol 0.5%, ofloxacin, prednisolone acetate and ketorolac was instilled and eye shield taped over the eye. The patient was taken to recovery in good condition and will be seen postoperatively.
== END 2025-05-02 09:35 | disposition home or self-care (01) ==
PROVIDERS: PCP Nurse Practitioner Family; Visit Provider Ophthalmology
PROC: (CPT 66984; principal; 2025-05-02 09:00)
DX: H25.811 Combined forms of age-related cataract, right eye (principal); I10 Essential (primary) hypertension; E78.00 Pure hypercholesterolemia, unspecified; E05.90 Thyrotoxicosis, unspecified without thyrotoxic crisis or storm; Z79.890 Hormone replacement therapy; Z79.82 Long term (current) use of aspirin; Z79.1 Long term (current) use of non-steroidal anti-inflammatories (NSAID); Z79.899 Other long term (current) drug therapy; Z88.0 Allergy status to penicillin
CPT/HCPCS: 66984; J2250; V2632